=== PATIENT | female | born 1950 | race Caucasian/White ===

== ENCOUNTER 2019-12-28 06:53 | Emergency (ER) | payer MEDICARE ==
[~2019-12-28] VITALS: Ht 175.2 cm; Wt 79.0 kg
[2019-12-28] MEDS ORDERED: MECLIZINE 25 MG (ANTIVERT) TAB PO ONE (07:30)
[2019-12-28 07:38] LABS: HEMATOCRIT 38 % (35-52); MEAN CORPUSCULAR HEMOGLOBIN 28 PG (25-34); MEAN CORPUSCULAR HGB CONC 32 G/DL (32-36); MEAN CORPUSCULAR VOLUME 89 FL (80-99); RED CELL DISTRIBUTION WIDTH 13.8 % (10.0-14.5); WHITE BLOOD COUNT 9.9 10^3/uL (4.3-11.0)
[2019-12-28 07:39] LABS: BASOPHILS # (AUTO) 0.1 10^3/uL (0.0-0.1); BASOPHILS % (AUTO) 1 % (0-10); EOSINOPHILS # (AUTO) 0.3 10^3/uL (0.0-0.3); EOSINOPHILS % (AUTO) 3 % (0-10); LYMPHOCYTES # (AUTO) 2.5 X 10^3 (1.0-4.0); LYMPHOCYTES % (AUTO) 25 % (12-44); MEAN PLATELET VOLUME 9.8 FL (7.4-10.4); MONOCYTES # (AUTO) 0.6 X 10^3 (0.0-1.0); MONOCYTES % (AUTO) 6 % (0-12); NEUTROPHILS # (AUTO) 6.5 X 10^3 (1.8-7.8); NEUTROPHILS % (AUTO) 65 % (42-75); PLATELET COUNT 334 10^3/uL (130-400)
--- NOTE | 2019-12-28 07:39 | ED General ---
General Chief Complaint: Dizziness/Syncope Stated Complaint: DIZZY,VOMITING Nursing Triage Note: Patient presents to the ED with c/o of sudden onset dizziness with nausea and vomiting. States she woke up around 5am with dizziness. She reports that she is 4 weeks post-op from a right hip replacement. Nursing Sepsis Screen: No Definite Risk Source of Information: Patient Exam Limitations: No Limitations History of Present Illness Date Seen by Provider: Dec 28, 2019 Time Seen by Provider: 07:00 Initial Comments Awoke to use the restroom this morning w dizziness, worse w moving head. Had difficulty walking and became nauseated and vomited x 1. Hx of similar episode in the past. No other symptoms. Denies MILLER, numbness, tingling or weakness. Denies speech difficulty. Had Right hip replacement 4 weeks ago, denies pain or swelling or LE's. Taking an ASA daily. No Hx of DVT / PE. Timing/Duration: 1-3 Hours Severity: Moderate Modifying Factors: worse with Movement Associated Systoms: No Headaches; Nausea/Vomiting; No Shortness of Air, No Syncope, No Weakness Allergies and Home Medications Allergies Coded Allergies: Sulfa (Sulfonamide Antibiotics) (Verified Allergy, Unknown, 12/28/19) Patient Home Medication List Home Medication List Reviewed: Yes Review of Systems Review of Systems Constitutional: see HPI; No diaphoresis; dizziness; No fever, No malaise, No weakness EENTM: no symptoms reported; No ear pain, No blurred vision, No double vision, No eye pain, No nose congestion, No throat pain, No throat swelling Respiratory: no symptoms reported; No cough, No dyspnea on exertion, No short of breath Cardiovascular: No chest pain, No edema, No palpitations, No syncope, No vascular heart diseas Gastrointestinal: No abdominal pain; nausea, vomiting Musculoskeletal: no symptoms reported; No back pain, No joint pain, No joint swelling, No muscle pain, No muscle stiffness, No muscle cramps, No muscle twitching, No muscle weakness, No neck pain Skin: No change in color, No lesions, No lumps, No rash Psychiatric/Neurological: Denies Headache, Denies Numbness, Denies Paresthesia, Denies Pre-Existing Deficit, Denies Seizure, Denies Tingling, Denies Tremors, Denies Weakness Past [id number]-Eaijjs Hx Past Med/Social Hx: Reviewed Nursing Past Med/Soc Hx Patient Social History Alcohol Use: Denies Use Recreational Drug Use: No Smoking Status: Never a Smoker 2nd Hand Smoke Exposure: No Recent Foreign Travel: No Contact w/Someone Who Travel: No Recent Infectious Disease Expo: No Recent Hopitalizations: No Physical Abuse: No Sexual Abuse: No Mistreated: No Fear: No Seasonal Allergies Seasonal Allergies: No Past Medical History Surgeries: Yes (R hip replacement, cataract removal) Bowel Surgery, Eye Surgery, Gallbladder, Hysterectomy, Orthopedic Respiratory: No Cardiac: Yes Hypertension Neurological: Yes Vertigo GANG SAWYER History: Hysterectomy Genitourinary: No Gastrointestinal: Yes Gastroesophageal Reflux Endocrine: No HEENT: No Cancer: No Psychosocial: No Integumentary: No Blood Disorders: No Physical Exam Vital Signs Vital Signs - First Documented 12/28/19 06:53 Temp 36.1 Pulse 78 Resp 18 B/P (MAP) 191/80 (117) Pulse Ox 100 O2 Delivery Room Air Capillary Refill : Less Than 3 Seconds Height, Weight, BMI Height: '" Weight: lbs. oz. kg; 25.00 BMI Method: General Appearance: No Apparent Distress, WD/WN HEENT: PERRL/EOMI, TMs Normal, Normal ENT Inspection, Pharynx Normal; No Photophobia Neck: Normal Inspection, Non Tender, Supple Respiratory: Chest Non Tender, Lungs Clear Cardiovascular: Regular Rate, Rhythm, No Edema, No Gallop, Normal Peripheral Pulses Gastrointestinal: Normal Bowel Sounds, Non Tender, Soft Extremity: Normal Capillary Refill, Normal Inspection, Normal Range of Motion, Non Tender, No Calf Tenderness, No Pedal Edema; No Calf Tenderness Neurologic/Psychiatric: Alert, Oriented x3, No Motor/Sensory Deficits, Normal Mood/Affect, street 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 Norm as Tested; No Abnormal Cerebellar Tests, No Abnormal street 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; Abnormal Gait (unable to walk 2 to severe vertigo sx); No Aphasia, No Depressed Affect, No Disoriented, No EOM Palsy, No Facial Droop, No Motor Weakness, No Sensory Deficit Skin: Normal Color, Warm/Dry Progress/Results/Core Measures Suspected Sepsis Recent Fever Within 48 Hours: No Infection Criteria Present: None New/Unexplained Altered Menta: No Sepsis Screen: No Definite Risk SIRS Temperature: Pulse: 78 Respiratory Rate: 18 Laboratory Tests 12/28/19 07:10: White Blood Count 9.9 Blood Pressure 191 /80 Mean: 117 Laboratory Tests 12/28/19 07:10: Creatinine 0.78, INR Comment 1.0, Platelet Count 334, Total Bilirubin 0.3 Results/Orders Lab Results Laboratory Tests Test 12/28/19 07:10 Range/Units White Blood Count 9.9 4.3-11.0 10^3/uL Red Blood Count 4.28 L 4.35-5.85 10^6/uL Hemoglobin 12.0 11.5-16.0 G/DL Hematocrit 38 35-52 % Mean Corpuscular Volume 89 80-99 FL Mean Corpuscular Hemoglobin 28 25-34 PG Mean Corpuscular Hemoglobin Concent 32 32-36 G/DL Red Cell Distribution Width 13.8 10.0-14.5 % Platelet Count 334 130-400 10^3/uL Mean Platelet Volume 9.8 7.4-10.4 FL Neutrophils (%) (Auto) 65 42-75 % Lymphocytes (%) (Auto) 25 12-44 % Monocytes (%) (Auto) 6 0-12 % Eosinophils (%) (Auto) 3 0-10 % Basophils (%) (Auto) 1 0-10 % Neutrophils # (Auto) 6.5 1.8-7.8 X 10^3 Lymphocytes # (Auto) 2.5 1.0-4.0 X 10^3 Monocytes # (Auto) 0.6 0.0-1.0 X 10^3 Eosinophils # (Auto) 0.3 0.0-0.3 10^3/uL Basophils # (Auto) 0.1 0.0-0.1 10^3/uL Prothrombin Time 13.6 12.2-14.7 SEC INR Comment 1.0 0.8-1.4 Activated Partial Thromboplast Time 29 24-35 SEC D-Dimer 2.91 H 0.00-0.49 UG/ML Sodium Level 142 135-145 MMOL/L Potassium Level 3.7 3.6-5.0 MMOL/L Chloride Level 104 98-107 MMOL/L Carbon Dioxide Level 23 21-32 MMOL/L Anion Gap 15 H 5-14 MMOL/L Blood Urea Nitrogen 14 7-18 MG/DL Creatinine 0.78 0.60-1.30 MG/DL Estimat Glomerular Filtration Rate > 60 BUN/Creatinine Ratio 18 Glucose Level 127 H 70-105 MG/DL Calcium Level 9.4 8.5-10.1 MG/DL Corrected Calcium 9.2 8.5-10.1 MG/DL Total Bilirubin 0.3 0.1-1.0 MG/DL Aspartate Amino Transf (AST/SGOT) 19 5-34 U/L Alanine Aminotransferase (ALT/SGPT) 9 0-55 U/L Alkaline Phosphatase 109 40-136 U/L Troponin I < 0.30 <0.30 NG/ML Total Protein 7.3 6.4-8.2 GM/DL Albumin 4.3 3.2-4.5 GM/DL My Orders Orders - ROVENSTINEJAD DO Partial Thromboplastin Time (12/28/19 07:05) Ct Head Wo (12/28/19 07:05) Cbc With Automated Diff (12/28/19 07:05) Comprehensive Metabolic Panel (12/28/19 07:05) Fibrin Degradation Products (12/28/19 07:05) Protime With Inr (12/28/19 07:05) Troponin I Fs (12/28/19 07:05) Ekg Tracing (12/28/19 07:05) Meclizine Tablet (Antivert Tablet) (12/28/19 07:30) Medications Given in ED Current Medications Medications Dose Ordered Sig/Soo Route Start Time Stop Time Status Last Admin Dose Admin Meclizine HCl 25 mg ONCE ONCE PO 12/28/19 07:30 12/28/19 07:31 DC 12/28/19 07:33 25 MG Vital Signs/I&O 12/28/19 12/28/19 06:53 09:35 Temp 36.1 36.1 Pulse 78 71 Resp 18 16 B/P (MAP) 191/80 (117) 177/78 (117) Pulse Ox 100 100 O2 Delivery Room Air Capillary Refill : Less Than 3 Seconds Blood Pressure Mean: 117 Progress Note : Time: 09:00 Progress Note Patient presents w severe vertigo, nausea and vomiting first noted upon awakening this morning to use the restroom. Last known well @ midnight. Symptoms worse w changing positions or moving head. Hx of 1 other episode of vertigo in the past, but not this bad. Normal CT, w chronic ischemic changes, normal labs w elevated d-dimer. Hx of recent hip surgery 4 wks ago. No significant improvement after meclizine. Called [facility] (pt's request) @ 0817, spoke to Neuro (Dr Arnold) and transfer physician, Dr Ryan, who accepts for transfer @ 0830 for ER to ER to [facility] w plans for MRI on arrival. Most likely peripheral vertigo, but several risk factors for possible posterior circulation CVA can not be ruled out at this facility and necessitate transfer to higher level of care at this time. Departure Communication (Admissions) Family Conversation multiple conversations w patient and family regarding need for further evaluation at a facility more capable. Will need an MRI to rule out a posterior circulation stroke. Explained risk factors and risk benefit of evaluation. Impression Primary Impression: Vertigo Disposition: 02 XFER SHT-TRM HOSP Condition: Stable Transfer Transfer Reason: Exceeds level of care Time Spoke to Accepting Phy: 08:[address] Ryan, [facility] transfer physician accepts @ 0830 for ER to ER [facility]. Method of Transfer: EMS Departure-Patient Inst. Referrals: HAILEY FLANNERY MD (PCP/Family) Primary Care Physician JAD DARBY DO Dec 28, 2019 07:39
[2019-12-28 07:40] LABS: SODIUM 142 MMOL/L (135-145)
[2019-12-28 07:41] LABS: ALANINE AMINOTRANSFERASE 9 U/L (0-55); ALBUMIN 4.3 GM/DL (3.2-4.5); ALKALINE PHOSPHATASE 109 U/L (40-136); BILIRUBIN,TOTAL 0.3 MG/DL (0.1-1.0); BUN/CREATININE RATIO 18; CALCIUM 9.4 MG/DL (8.5-10.1); CARBON DIOXIDE 23 MMOL/L (21-32); CHLORIDE 104 MMOL/L (98-107); CREATININE SERUM 0.78 MG/DL (0.60-1.30); GFR ESTIMATED > 60; GLUCOSE 127 MG/DL (70-105); POTASSIUM 3.7 MMOL/L (3.6-5.0); TOTAL PROTEIN 7.3 GM/DL (6.4-8.2)
--- NOTE | 2019-12-28 07:47 | Diagnostic Imaging Report ---
PROCEDURE: CT head without contrast. TECHNIQUE: Multiple contiguous axial images were obtained through the brain without the use of intravenous contrast. Auto Exposure Controls were utilized during the CT exam to meet ALARA standards for radiation dose reduction. INDICATION: Dizziness/vomiting The ventricles are normal in size, shape and position. There are no masses or hemorrhages. There are no extra-axial fluid collections. Paranasal sinuses are clear. There are some small areas of decreased density in the periventricular white matter likely due to chronic small vessel ischemic change. IMPRESSION: Mild chronic ischemic leukoencephalopathy. No acute abnormality seen. Dictated by: Dictated on workstation # [id number]
[2019-12-28 07:58] LABS: FIBRIN DEGRADATION PRODUCTS 2.91 UG/ML (0.00-0.49); PROTHROMBIN TIME PATIENT 13.6 SEC (12.2-14.7)
[2019-12-28 09:35] VITALS: BP 177/78
== END 2019-12-28 09:44 | disposition short-term general hospital (02) ==
LOC: ER FS 06:56
DX: R42 Dizziness and giddiness (principal); Z88.2 Allergy status to sulfonamides; Z90.710 Acquired absence of both cervix and uterus; Z96.641 Presence of right artificial hip joint
CPT/HCPCS: 36415; 70450; 80053; 84484; 85025; 85379; 85610; 85730; 93005

== ENCOUNTER 2021-02-22 13:29 | Outpatient (CLI) | payer MEDICARE ==
[~2021-02-22] VITALS: Ht 175.3 cm; Wt 81.8 kg
[2021-02-22 13:26] VITALS: BP 152/91
[2021-02-22] MEDS ORDERED: diphenhydrAMINE 50 MG/ML INJ (BENADRYL) IV PRN (13:45)
[2021-02-22] MEDS ORDERED: EPINEPHrine INJECTION 1 MG/ML AMP IM PRN (13:45)
[2021-02-22] MEDS ORDERED: CASIRIVIMAB/IMDEVIMAB 2,400 MG/NS 250 ML IV ONE ×3 (13:45)
[2021-02-22 16:02] VITALS: BP 152/91
== END 2021-02-22 16:05 | disposition home or self-care (01) ==
LOC: INFUSION 13:29
PROVIDERS: ATTEND Family Medicine
DX: Z23 Encounter for immunization (principal); U07.1 COVID-19

== ENCOUNTER → 2021-05-16 | Outpatient (CLI) | payer MEDICARE ==
[~2021-05-16] MED LIST: CATHETER FLUSH 10 ML SYR IV PRN; HOLD METFORMIN - RECEIVED CONTRAST 20 ML VIAL IV SCH; IOHEXOL 350 MG/ML 100 ML (OMNIPAQUE 350) VIAL IV ONE; NS 100 ML (IVPB) BAG IV ONE
[2021-05-16 07:54] LABS: CALCIUM 9.4 MG/DL (8.5-10.1); CREATININE SERUM 0.93 MG/DL (0.60-1.30); POTASSIUM 4.3 MMOL/L (3.6-5.0)
[2021-05-16 07:55] LABS: ALBUMIN 4.2 GM/DL (3.2-4.5); BILIRUBIN,TOTAL 0.4 MG/DL (0.1-1.0); TOTAL PROTEIN 7.3 GM/DL (6.4-8.2)
--- NOTE | 2021-05-16 09:02 | Diagnostic Imaging Report ---
PROCEDURE: CT angiography of the chest with contrast. TECHNIQUE: Multiple contiguous axial images were obtained through the chest after uneventful bolus administration of intravenous contrast. 3D reconstructed CTA MIP acquisitions were also performed. Auto Exposure Controls were utilized during the CT exam to meet ALARA standards for radiation dose reduction. INDICATION: Cough, elevated D-dimer. No relevant comparison. FINDINGS: Pulmonary arterial branches are widely patent and well opacified. No filling defect. No PE. The thoracic aorta is patent and nonaneurysmal. There are coronary arterial atherosclerotic vascular calcifications. There is a small hiatal hernia. The lungs are clear. No infiltrate or groundglass opacity. No mass or lymphadenopathy. No acute or suspect soft tissue or osseous chest wall pathology. There is no effusion or pneumothorax. The visualized upper abdomen showed no acute appearing abnormality. IMPRESSION: Negative for PE or acute aortic disease. Clear lungs. Chronic coronary artery atherosclerotic vascular calcifications noted. Small hiatal hernia. Dictated by: Dictated on workstation # [id number]
== END ==
LOC: RAD FS 07:15
PROVIDERS: ATTEND Family Medicine
DX: R79.89 Other specified abnormal findings of blood chemistry (principal); I25.10 Atherosclerotic heart disease of native coronary artery without angina pectoris; K44.9 Diaphragmatic hernia without obstruction or gangrene
CPT/HCPCS: 36415; 71275; 80053

== ENCOUNTER → 2021-08-13 | Outpatient (CLI) | payer SELFPAY ==
--- NOTE | 2021-08-13 17:01 | Diagnostic Imaging Report ---
EXAMINATION: CT calcium scoring without contrast. TECHNIQUE: Multiple contiguous axial images were obtained through the chest without the use of intravenous contrast for purposes of calcium scoring. All CT scans use one or more of the following dose optimizing techniques: automated exposure control, MA and/or KvP adjustment based on patient size and exam type or iterative reconstruction. HISTORY: Coronary artery disease. COMPARISON: None available. FINDINGS: The calculated coronary artery calcium score is 1049. There is no edema or pneumonia. No pleural effusion. No pneumothorax. No suspicious nodules. Heart size is normal. No pericardial effusion. Aorta is normal in caliber. There is no axillary or supraclavicular lymphadenopathy. There is no mediastinal lymphadenopathy. Limited views of the upper abdomen are unremarkable. There are no suspicious osseus lesions. IMPRESSION: Calculated coronary artery calcium score of 1049, placing the patient above the 90th percentile for age. Dictated by: Dictated on workstation # [id number]
== END ==
LOC: RAD FS 10:26
PROVIDERS: ATTEND Family Medicine
DX: Z82.49 Family history of ischemic heart disease and other diseases of the circulatory system (principal)
CPT/HCPCS: 75571

== ENCOUNTER 2022-03-14 08:46 | Emergency (ER) | payer MEDICARE ==
[~2022-03-14] VITALS: Ht 175 cm; Wt 81.0 kg
[2022-03-14] MEDS ORDERED: fentaNYL INJ 100 MCG/2 ML AMP IVP STA ×2 (09:06→10:59)
[2022-03-14] MEDS ORDERED: ORPHENADRINE 60 MG/2 ML (NORFLEX) AMP (ED ONLY) IVP STA (09:06)
--- NOTE | 2022-03-14 09:13 | ED Back Pain ---
General Chief Complaint: Lower Extremity Stated Complaint: RT LEG PAIN Nursing Triage Note: Patient reports she has chronic lower back pain, states she received an injection at on March 06. She reports her right leg began hurting yesterday with constant aching and occasional sharp, shooting pains down her leg. Source of Information: Patient, Spouse History of Present Illness Date Seen by Provider: March 14, 2022 Time Seen by Provider: 08:49 Initial Comments 71-year-old female presenting with complaints of pain in the right leg. She states that this started hurting yesterday. She does have a history of chronic low back pain and had spinal injections with pain management on March 06 at [facility]. She reports that the left leg that has been hurting was doing better but now her right leg is bothering her. She has pain with constant aching and feeling like the muscles are tight or spasming. Then she has occasional sharp electric shocks sensations going down her leg. She denies any new fall or trauma however 2 days ago she had been doing a lot of gardening outside. She had taken some hydrocodone last night to help with her pain. This allowed her to rest some overnight but she was never able to sleep. Since the pain persisted and was feeling worse this morning she came to the emergency department. She denies any loss of bowel or bladder control. She does have chronic stress incontinence since she had gynecologic surgery previously, and this has not changed. Location: Other (low back and right hip radiating down right leg) Timing/Duration: 1-2 Days Severity: Severe Pain/Injury Location: Lower Extremity (low back and right hip radiating down right leg) Radiation: Feet, Lower Legs, Upper Legs Method of Injury: Unknown Modifying Factors: Worse With Movement; Improves With Pain Medication (hydrocodone helped some) Associated Symptoms: muscle spasms; No fever, No weakness, No numbness in legs/feet, No tingling in legs/feet, No sensory/motor loss; lower back pain; No loss of bladder control, No loss of bowel control Allergies and Home Medications Allergies Coded Allergies: Sulfa (Sulfonamide Antibiotics) (Verified Allergy, Unknown, 12/28/19) lisinopril (Verified Allergy, Unknown, 03/14/22) Patient Home Medication List Home Medication List Reviewed: Yes Hydrocodone/Acetaminophen (Hydrocodone-Acetamin 5-325 mg) 5 Mg-325 Mg Tablet, 1 TAB PO Q4H PRN for PAIN-SEVERE (8-10) Prescribed by: KRISTEN MAZARIEGOS on 03/14/22 1031 Prednisone (Prednisone) 20 Mg Tab, 40 MG PO DAILY Prescribed by: KRISTEN MAZARIEGOS on 03/14/22 1030 Tizanidine HCl (Tizanidine HCl) 4 Mg Capsule, 4 MG PO TID PRN for MUSCLE SPASMS Prescribed by: KRISTEN MAZARIEGOS on 03/14/22 1030 Review of Systems Constitutional: No chills, No fever EENTM: no symptoms reported Respiratory: no symptoms reported Cardiovascular: no symptoms reported Gastrointestinal: no symptoms reported Genitourinary: no symptoms reported Musculoskeletal: see HPI Skin: no symptoms reported Psychiatric/Neurological: Anxiety (anxious and stressed with pain from her right leg) Past Oczzlxm-Nkpyqt-Worjur Hx Patient Social History Tobacco Use?: No Substance use?: No Alcohol Use?: No Pt feels they are or have been: No Seasonal Allergies Seasonal Allergies: No Past Medical History Surgery/Hospitalization HX: HTN, Hypercholesterolemia, Chronic Low Back Pain, Sciatica Surgeries: Yes (R hip replacement, cataract removal) Bowel Surgery, Eye Surgery, Gallbladder, Hysterectomy, Orthopedic Respiratory: No Cardiac: Yes Hypertension Neurological: Yes Vertigo 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 oz. 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 Norm as Tested Skin: Normal Color, Warm/Dry Progress/Results/Core Measures Results/Orders My Orders Orders - ENYART,KRISTEN E MD Ed Iv/Invasive Line Start (03/14/22 09:06) Orphenadrine Inj (Ed Only) (Norflex Inje (03/14/22 09:06) Fentanyl Inj (Sublimaze Injection) (03/14/22 09:06) Dexamethasone Injection (Decadron Inje (03/14/22 09:06) Ct Lumbar Spine Wo (03/14/22 09:07) Ct Pelvis Wo (03/14/22 09:07) Ondansetron Injection (Zofran Injectio (03/14/22 09:31) Ondansetron Injection (Zofran Injectio (03/14/22 09:33) Ketorolac Injection (Toradol Injection) (03/14/22 10:33) Ondansetron Injection (Zofran Injectio (03/14/22 10:59) Fentanyl Inj (Sublimaze Injection) (03/14/22 10:59) Vital Signs/I&O 03/14/22 03/14/22 08:55 11:15 Temp 36.3 Pulse 82 60 Resp 18 18 B/P (MAP) 198/104 (135) 133/82 Pulse Ox 99 99 O2 Delivery Room Air Room Air Blood Pressure Mean: 135 Progress Progress Note #1: Progress Note Check CT scan of Lumbar spine and pelvis to evaluate for any acute bony abnormality to be causing her increased low back pain, right hip pain and pain s hooting down right leg. For pain and muscle spasm complaints will give Norflex 60 mg IV, Fentanyl 50 mcg IV, Dexamethasone 10 mg IV. Differential diagnosis includes sciatica, flare of chronic back pain, muscle spasm, pinched nerve, lumbar radiculopathy,spinal stenosis Progress Note #2: Progress Note Patient had n/v after medications given in ED and transport to and from CT. Given Zofran 4 mg IV which helped these symptoms. She reports some improvement in her pain but that she still has constant aching pain present. Awaiting CT reports. Progress Note #3: Progress Note 1014 CT scan show no acute inflammatory process in the pelvis. She has advanced degenerative changes in the lumbar spine with L2-3 and L4-5 being more severe degeneration with neuroforaminal stenosis and trefoil spinal stenosis more severe at those levels. Will refill Hydrocodone so she has that available prn severe pain. Continue with Aleve she is already taking. Do a short steroid burst for additional anti-inflammatory effect. Prescribe muscle relaxer for home as well. Counseled pt on additive sedative effect of muscle relaxer and narcotics. Try alternating ice and heat. Rest and check with clinic for continued concerns/issues with back and leg. Prior to discharge home she was given an additional dose of Fentanyl 50 mcg, Zofran 4 mg, and added Toradol 30 mg IV to try and help with her pain and help her rest at home. Diagnostic Imaging Diagonstic Imaging: CT Plain Films/CT/US/NM/MRI: pelvis (and Lumbar spine) Comments [facility] [place], [place] NAME: MISHEL PHIPPS [facility] REC#: [id number] PT STATUS: REG ER : 1950 PHYSICIAN: KRISTEN MAZARIEGOS MD ADMIT DATE: 03/14/22/ER FS Draft Date of Exam:03/14/22 CT PELVIS WO PROCEDURE: CT pelvis without contrast. TECHNIQUE: Multiple contiguous axial images were obtained through the pelvis without the use of intravenous contrast. Sagittal and coronal reformations were performed. Auto Exposure Controls were utilized during the CT exam to meet ALARA standards for radiation dose reduction. INDICATION: Back and right hip pain. No relevant comparison. FINDINGS: Sacrococcygeal segments and SI joints nonacute and unremarkable. No symphyseal or SI joint diastases. No sacral fracture. No intra or extraperitoneal hemorrhage or inflammatory changes. There is a right hip replacement without apparent complication. The left hip arthritic but nonacute. No osseous or hardware fracture. No mass or fluid collection. The uterus absent or atrophic. There is no adnexal lesion. Pelvic bowel loops unobstructed, nonfocal and nonacute. IMPRESSION: Unremarkable CT pelvis right hip replacement without complication. No pelvic fracture, hemorrhage or inflammatory process identified. Dictated on workstation # [id number] Dict: 03/14/22 0948 Trans: 03/14/22 1001 [id number] Interpreted by: CLARI GALLARDO Electronically signed by: [facility] [place] [place] NAME: MISHEL PHIPPS [facility] REC#: [id number] PT STATUS: REG ER : 1950 PHYSICIAN: KRISTEN MAZARIEGOS MD ADMIT DATE: 03/14/22/ER FS Draft Date of Exam:03/14/22 CT LUMBAR SPINE WO PROCEDURE: CT lumbar spine without contrast. TECHNIQUE: Multiple contiguous axial images were obtained through the lumbar spine without the use of intravenous contrast. Sagittal and coronal reformations were then performed. Auto Exposure Controls were utilized during the CT exam to meet ALARA standards for radiation dose reduction. INDICATION: Severe back pain There is mild left convexity curvature of the lumbar spine. This results in advanced disc space narrowing to the right of midline at L2-L3 with subchondral sclerosis and associated marginal spurring. There is associated disc bulging and ligamentum flavum hypertrophy at this level resulting in moderate trefoil type spinal stenosis with mild to moderate left and moderately severe right neuroforaminal stenosis. There is also diffuse annular bulging of the L3-L4 disc which is somewhat eccentric toward the right. This results in mild left and moderate right neuroforaminal stenosis with mild central spinal stenosis. At L4-L5, there is grade 1 anterolisthesis of L4 on L5 with extensive ligamentum flavum hypertrophy and degenerative facet arthropathy resulting in height grade trefoil type spinal stenosis and bilateral neuroforaminal stenosis, greater on the left. At the L5-S1 level, there is diffuse disc bulging with associated degenerative facet arthropathy resulting in no significant spinal stenosis however there is moderate bilateral neuroforaminal stenosis which is greater on the right. In addition, note is made of moderate narrowing of the T11-T12 disc space with associated endplate spurring and disc bulging. There is no evidence of an acute fracture. No definite paraspinous abnormality is identified. IMPRESSION: Advanced degenerative findings throughout the lumbar spine which are most pronounced at the L2-L3 and L4-L5 levels. At L2-L3, there is resultant moderate trefoil type spinal stenosis with mild to moderate left and moderately severe right neuroforaminal stenosis, while at L4-L5, there is high-grade trefoil type spinal stenosis and bilateral neuroforaminal stenosis, greater on the left. Dictated on workstation # [id number] Dict: 03/14/22 0947 Trans: 03/14/22 0957 [facility] [id number] Interpreted by: CLARI WU MD Electronically signed by: Reviewed: Reviewed by Me Departure Impression Primary Impression: Chronic low back pain with right-sided sciatica Qualified Codes: M54.41 - Lumbago with sciatica, right side; G89.29 - Other chronic pain Additional Impressions: Lumbar back pain with radiculopathy affecting right lower extremity Spinal stenosis of lumbar region at multiple levels Spinal stenosis of lumbar region with radiculopathy Disposition: 01 HOME, SELF-CARE Condition: Stable Departure-Patient Inst. Decision time for Depature: 10:32 Referrals: HAILEY FLANNERY MD (PCP) Primary Care Physician Patient Instructions: Sciatica ED, Low Back Pain ED, Radiculopathy, Spinal St enosis (DC) Add. Discharge Instructions: Continue with your current medications. Add on the muscle relaxer to help with spasms and aching in the leg, Steroids for next few days to try and help more with inflammation. Check back with pain management doctor at as well as your primary care provider about increased pain symptoms. Try alternating ice and heat to your low back and right hip to help with pain and inflammation. Stay well hydrated and try to get plenty of rest All discharge instructions reviewed with patient and/or family. Voiced understanding. Scripts Prednisone (Prednisone) 20 Mg Tab 40 MG PO DAILY for sciatica for 5 Days, #10 TAB 0 Refills Prov: KRISTEN MAZARIEGOS MD 03/14/22 Tizanidine HCl (Tizanidine HCl) 4 Mg Capsule 4 MG PO TID PRN for MUSCLE SPASMS for 10 Days, #30 CAP 0 Refills Prov: KRISTEN MAZARIEGOS MD 03/14/22 Hydrocodone/Acetaminophen (Hydrocodone-Acetamin 5-325 mg) 5 Mg-325 Mg Tablet 1 TAB PO Q4H PRN for PAIN-SEVERE (8-10) for 5 Days, #30 TAB 0 Refills Prov: KRISTEN MAZARIEGOS MD 03/14/22 Work/School Note: Work Release Form Date Seen in the Emergency Department: March 14, 2022 Return to Work: March 17, 2022 Other Restrictions Listed Below: Limit activity based on back and leg pain KRISTEN MAZARIEGOS MD March 14, 2022 09:13
[2022-03-14] MEDS ORDERED: ONDANSETRON 4 MG/2 ML (SDV) Z0FRAN IVP STA ×2 (09:31→10:59)
[2022-03-14] MEDS ORDERED: ONDANSETRON 4 MG/2 ML (SDV) Z0FRAN ONE (09:33)
--- NOTE | 2022-03-14 09:58 | Diagnostic Imaging Report ---
PROCEDURE: CT lumbar spine without contrast. TECHNIQUE: Multiple contiguous axial images were obtained through the lumbar spine without the use of intravenous contrast. Sagittal and coronal reformations were then performed. Auto Exposure Controls were utilized during the CT exam to meet ALARA standards for radiation dose reduction. INDICATION: Severe back pain There is mild left convexity curvature of the lumbar spine. This results in advanced disc space narrowing to the right of midline at L2-L3 with subchondral sclerosis and associated marginal spurring. There is associated disc bulging and ligamentum flavum hypertrophy at this level resulting in moderate trefoil type spinal stenosis with mild to moderate left and moderately severe right neuroforaminal stenosis. There is also diffuse annular bulging of the L3-L4 disc which is somewhat eccentric toward the right. This results in mild left and moderate right neuroforaminal stenosis with mild central spinal stenosis. At L4-L5, there is grade 1 anterolisthesis of L4 on L5 with extensive ligamentum flavum hypertrophy and degenerative facet arthropathy resulting in height grade trefoil type spinal stenosis and bilateral neuroforaminal stenosis, greater on the left. At the L5-S1 level, there is diffuse disc bulging with associated degenerative facet arthropathy resulting in no significant spinal stenosis however there is moderate bilateral neuroforaminal stenosis which is greater on the right. In addition, note is made of moderate narrowing of the T11-T12 disc space with associated endplate spurring and disc bulging. There is no evidence of an acute fracture. No definite paraspinous abnormality is identified. IMPRESSION: Advanced degenerative findings throughout the lumbar spine which are most pronounced at the L2-L3 and L4-L5 levels. At L2-L3, there is resultant moderate trefoil type spinal stenosis with mild to moderate left and moderately severe right neuroforaminal stenosis, while at L4-L5, there is high-grade trefoil type spinal stenosis and bilateral neuroforaminal stenosis, greater on the left. Dictated by: Dictated on workstation # [id number]
--- NOTE | 2022-03-14 10:02 | Diagnostic Imaging Report ---
PROCEDURE: CT pelvis without contrast. TECHNIQUE: Multiple contiguous axial images were obtained through the pelvis without the use of intravenous contrast. Sagittal and coronal reformations were performed. Auto Exposure Controls were utilized during the CT exam to meet ALARA standards for radiation dose reduction. INDICATION: Back and right hip pain. No relevant comparison. FINDINGS: Sacrococcygeal segments and SI joints nonacute and unremarkable. No symphyseal or SI joint diastases. No sacral fracture. No intra or extraperitoneal hemorrhage or inflammatory changes. There is a right hip replacement without apparent complication. The left hip arthritic but nonacute. No osseous or hardware fracture. No mass or fluid collection. The uterus absent or atrophic. There is no adnexal lesion. Pelvic bowel loops unobstructed, nonfocal and nonacute. IMPRESSION: Unremarkable CT pelvis right hip replacement without complication. No pelvic fracture, hemorrhage or inflammatory process identified. Dictated by: Dictated on workstation # [id number]
[2022-03-14] MEDS ORDERED: PRD20T PO (10:30)
[2022-03-14] MEDS ORDERED: ACHD5005 PO (10:30)
[2022-03-14] MEDS ORDERED: TIZA4CAP8 PO (10:30)
[2022-03-14] MEDS ORDERED: KETOROLAC 30 MG/ML VIAL IVP STA (10:33)
[2022-03-14 11:15] VITALS: BP 133/82
== END 2022-03-14 11:15 | disposition home or self-care (01) ==
LOC: EDUNIT# 08:46 → ER FS 08:47
DX: M54.41 Lumbago with sciatica, right side (principal); M48.061 Spinal stenosis, lumbar region without neurogenic claudication; M54.16 Radiculopathy, lumbar region; G89.29 Other chronic pain; Z96.641 Presence of right artificial hip joint; X58.XXXA Exposure to other specified factors, initial encounter
CPT/HCPCS: 72131; 72192

== ENCOUNTER 2022-03-21 17:30 | Emergency (ER) | payer MEDICARE ==
[~2022-03-21] VITALS: Ht 172.7 cm; Wt 80.7 kg
[~2022-03-21 17:30] MED LIST changes: +ACHD5005 PO; -CATHETER FLUSH 10 ML SYR IV PRN; -HOLD METFORMIN - RECEIVED CONTRAST 20 ML VIAL IV SCH; -IOHEXOL 350 MG/ML 100 ML (OMNIPAQUE 350) VIAL IV ONE; -NS 100 ML (IVPB) BAG IV ONE; +PRD20T PO; +TIZA4CAP8 PO
[2022-03-21] MEDS ORDERED: fentaNYL INJ 100 MCG/2 ML AMP IVP STA (17:38)
[2022-03-21] MEDS ORDERED: ONDANSETRON 4 MG/2 ML (SDV) Z0FRAN IVP STA (17:38)
[2022-03-21 17:45] LABS: BASOPHILS # (AUTO) 0.1 10^3/uL (0.0-0.1); BASOPHILS % (AUTO) 0 % (0-10); EOSINOPHILS # (AUTO) 0.4 10^3/uL (0.0-0.3); EOSINOPHILS % (AUTO) 2 % (0-10); HEMATOCRIT 40 % (35-52); HEMOGLOBIN 13.2 g/dL (11.5-16.0); LYMPHOCYTES # (AUTO) 6.1 10^3/uL (1.0-4.0); LYMPHOCYTES % (AUTO) 33 % (12-44); MEAN CORPUSCULAR HEMOGLOBIN 29 pg (25-34); MEAN CORPUSCULAR HGB CONC 33 g/dL (32-36); MEAN CORPUSCULAR VOLUME 87 fL (80-99); MEAN PLATELET VOLUME 9.5 fL (9.0-12.2); MONOCYTES # (AUTO) 1.8 10^3/uL (0.0-1.0); MONOCYTES % (AUTO) 9 % (0-12); NEUTROPHILS # (AUTO) 10.2 10^3/uL (1.8-7.8); NEUTROPHILS % (AUTO) 54 % (42-75); PLATELET COUNT 279 10^3/uL (130-400); WHITE BLOOD COUNT 18.9 10^3/uL (4.3-11.0)
[2022-03-21] MEDS ORDERED: TETANUS,DIPTH,PERTUSS P/F (BOOSTRIX) 0.5 ML VIAL IM ONE (17:45)
--- NOTE | 2022-03-21 17:45 | ED Fall/Injury ---
General Chief Complaint: Trauma-Non Activation Stated Complaint: FALL/HEAD INJURY Source: patient History of Present Illness Date Seen by Provider: March 21, 2022 Time Seen by Provider: 17:30 Initial Comments 71-year-old female presenting with complaints of fall after tripping at home just prior to arrival. She did hit the left side of her face and nose. She has a lot of swelling and pain especially around her eye. She denies losing consciousness. She denies having any neck pain. She has not had nausea or vomiting. She denies any other injuries or pain. She is not able to open her left eye due to swelling and pain. She has an abrasion to the left side of her nose as well. she is unsure of her last tetanus booster. Location Injury Occurred: Home Occurred: just prior to arrival Severity: severe Injuries/Pain Location: face Context: tripped Loss of Consciousness: no loss of consciousness Modifying Factors: Worse With Movement Associated Symptoms (Fall): No Abdominal Pain, No Chest Pain, No Confusion, No Dizziness; Headache (left sided); No Lightheadedness, No Muscle Spasms, No Nausea/Vomiting, No Neck Pain, No Ringing in Ears, No Seizures, No Shortness of Air, No Slurred Speech, No Trouble Walking; Vision Changes (When the eyelids are pulled open on the left eye she states she can not see. She can barely make out light from dark when I shine bright light in her eye) Allergies and Home Medications Allergies Coded Allergies: Sulfa (Sulfonamide Antibiotics) (Verified Allergy, Unknown, 12/28/19) lisinopril (Verified Allergy, Unknown, 03/14/22) Patient Home Medication List Home Medication List Reviewed: Yes Hydrocodone/Acetaminophen (Hydrocodone-Acetamin 5-325 mg) 5 Mg-325 Mg Tablet, 1 TAB PO Q4H PRN for PAIN-SEVERE (8-10) Prescribed by: KRISTEN MAZARIEGOS on 03/14/22 1031 Prednisone (Prednisone) 20 Mg Tab, 40 MG PO DAILY Prescribed by: KRISTEN MAZARIEGOS on 03/14/22 1030 Tizanidine HCl (Tizanidine HCl) 4 Mg Capsule, 4 MG PO TID PRN for MUSCLE SPASMS Prescribed by: KRISTEN MAZARIEGOS on 03/14/22 1030 Review of Systems Review of Systems Constitutional: No chills, No fever Eyes: See HPI Ears, Nose, Mouth, Throat: denies ear pain, denies ear discharge; nose pain; denies nose discharge, denies epistaxis, denies mouth pain, denies mouth swelling Respiratory: No cough, No short of breath Cardiovascular: No chest pain Gastrointestinal: No abdominal pain, No nausea, No vomiting Genitourinary: no symptoms reported Musculoskeletal: back pain (chronic back pain with sciatica) Skin: see HPI Psychiatric/Neurological: Headache (left sided from facial injury) Past Uljpgpa-Mrfmwp-Pubpwe Hx Patient Social History Tobacco Use?: No Smoking Status: Never a Smoker Substance use?: No Alcohol Use?: No Pt feels they are or have been: No Seasonal Allergies Seasonal Allergies: No Past Medical History Surgery/Hospitalization HX: HTN, Hypercholesterolemia, Chronic Low Back Pain, Sciatica Surgeries: Yes (R hip replacement, cataract removal) Bowel Surgery, Eye Surgery, Gallbladder, Hysterectomy, Orthopedic Respiratory: No Cardiac: Yes Hypertension Neurological: Yes Vertigo 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 oz. kg; 26.00 BMI Method: General Appearance: moderate distress HEENT: TMs normal, pharynx normal, other (no raccoon sign or jackson sign. Swelling and bruising to left eye with abrasion to left side of nose. 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 as tested, alert, oriented x 3 Skin: warm/dry, ecchymosis (left periorbital and facial) [place] Coma Score Best Eye Response: (4) Open Spontaneously Best Verbal Response: (5) Oriented Best Motor Response: (6) Obeys Commands Jennifer Total: 15 Progress/Results/Core Measures Results/Orders Lab Results Laboratory Tests Test 03/21/22 17:40 Range/Units White Blood Count 18.9 H 4.3-11.0 10^3/uL Red Blood Count 4.58 3.80-5.11 10^6/uL Hemoglobin 13.2 11.5-16.0 g/dL Hematocrit 40 35-52 % Mean Corpuscular Volume 87 80-99 fL Mean Corpuscular Hemoglobin 29 25-34 pg Mean Corpuscular Hemoglobin Concent 33 32-36 g/dL Red Cell Distribution Width 14.8 H 10.0-14.5 % Platelet Count 279 130-400 10^3/uL Mean Platelet Volume 9.5 9.0-12.2 fL Immature Granulocyte % (Auto) 1 % Neutrophils (%) (Auto) 54 42-75 % Lymphocytes (%) (Auto) 33 12-44 % Monocytes (%) (Auto) 9 0-12 % Eosinophils (%) (Auto) 2 0-10 % Basophils (%) (Auto) 0 0-10 % Neutrophils # (Auto) 10.2 H 1.8-7.8 10^3/uL Lymphocytes # (Auto) 6.1 H 1.0-4.0 10^3/uL Monocytes # (Auto) 1.8 H 0.0-1.0 10^3/uL Eosinophils # (Auto) 0.4 H 0.0-0.3 10^3/uL Basophils # (Auto) 0.1 0.0-0.1 10^3/uL Immature Granulocyte # (Auto) 0.2 H 0.0-0.1 10^3/uL Neutrophils % (Manual) 60 % Lymphocytes % (Manual) 33 % Monocytes % (Manual) 6 % Eosinophils % (Manual) 1 % Prothrombin Time 13.1 12.2-14.7 SEC INR Comment 1.0 0.8-1.4 Activated Partial Thromboplast Time 26 24-35 SEC Sodium Level 134 L 135-145 MMOL/L Potassium Level 3.7 3.6-5.0 MMOL/L Chloride Level 98 98-107 MMOL/L Carbon Dioxide Level 23 21-32 MMOL/L Anion Gap 13 5-14 MMOL/L Blood Urea Nitrogen 21 H 7-18 MG/DL Creatinine 0.96 0.60-1.30 MG/DL Estimat Glomerular Filtration Rate 63 BUN/Creatinine Ratio 22 Glucose Level 122 H 70-105 MG/DL Calcium Level 9.2 8.5-10.1 MG/DL Corrected Calcium 9.3 8.5-10.1 MG/DL Magnesium Level 2.0 1.6-2.4 MG/DL Total Bilirubin 0.3 0.1-1.0 MG/DL Aspartate Amino Transf (AST/SGOT) 18 5-34 U/L Alanine Aminotransferase (ALT/SGPT) 31 0-55 U/L Alkaline Phosphatase 60 40-136 U/L Total Protein 6.6 6.4-8.2 GM/DL Albumin 3.9 3.2-4.5 GM/DL My Orders Orders - KRISTEN MAZARIEGOS MD Cbc With Automated Diff (03/21/22 17:36) Magnesium (03/21/22 17:36) Comprehensive Metabolic Panel (03/21/22 17:36) Protime With Inr (03/21/22 17:36) Partial Thromboplastin Time (03/21/22 17:36) O2 (03/21/22 17:36) Monitor-Rhythm Ecg Trace Only (03/21/22 17:36) Ed Iv/Invasive Line Start (03/21/22 17:36) Ct Head/Face/Cervical Wo (03/21/22 17:37) Ondansetron Injection (Zofran Injectio (03/21/22 17:38) Fentanyl Inj (Sublimaze Injection) (03/21/22 17:38) Dipht,Pertuss(Acell),Tet Adult (Boostrix (03/21/22 17:45) Manual Differential (03/21/22 17:40) Medications Given in ED Current Medications Medications Dose Ordered Sig/Soo Route Start Time Stop Time Status Last Admin Dose Admin Diphtheria/ Tetanus/Acell Pertussis 0.5 ml ONCE ONCE IM 03/21/22 17:45 03/21/22 17:46 DC 03/21/22 17:56 0.5 ML Vital Signs/I&O 03/21/22 03/21/22 17:37 18:43 Temp 35.8 Pulse 71 63 Resp 24 18 B/P (MAP) 189/86 (120) 187/88 Pulse Ox 99 100 O2 Delivery Room Air Room Air Progress Progress Note #1: Progress Note Update tetanus booster since she is unsure when she last had a shot. CT scan of head, face, cervical spine. With her having loss of vision from left eye will call Trauma center to see about emergent transfer so she can get somewhere that has trauma services in addition to facial trauma and ophthalmology. Ordered basic labs and coags. Give Fentanyl 25 mcg IV with Zofran 4 mg IV. Progress Note #2: Time: 17:39 Progress Note Call placed to [facility] to initiate transfer of patient for ophthalmology, facial trauma and general trauma. I spoke with BEREKET Mckinney about the patient and he will check with the trauma staff and call me back. Progress Note #3: Time: 18:12 Progress Note BEREKET Mckinney from the transfer center called back and Dr. Matthew Rudd accepted the patient for transfer to the emergency department for trauma evaluation and ophthalmology at . Will contact them as soon as we know if patient can be flown or if she will need to come by ground. Progress Note #4: Time: 18:23 Progress Note CBC shows elevated white blood cell count of 18.9 with a normal differential. Her hemoglobin and platelets are normal. Coags are normal. Her chemistry does not have any acute significant abnormality. CT scan of the head, face, cervical spine shows degenerative changes of the cervical spine but no acute fracture or displacement. The head showed no acute intracranial hemorrhage or fracture. She has multiple facial fractures of the left face and periorbital area. There is apparent entrapment of the inferior orbit with retro-orbital fat and swelling causing protrusion of the eye. Diagnostic Imaging Diagonstic Imaging: CT Plain Films/CT/US/NM/MRI: facial bones, c-spine, head Comments NAME: MISHEL PHIPPS [facility] REC#: [id number] PT STATUS: REG ER : 1950 PHYSICIAN: KRISTEN MAZARIEGOS MD ADMIT DATE: 03/21/22/ER FS Draft Date of Exam:03/21/22 CT HEAD/FACE/CERVICAL WO EXAMINATION: CT head, face and CT cervical spine without contrast. TECHNIQUE: Multiple contiguous axial images were obtained through the face, brain and cervical spine without the use of intravenous contrast. Sagittal and coronal reformations through the cervical spine were then performed. All CT scans use one or more of the following dose optimizing techniques: automated exposure control, MA and/or KvP adjustment based on patient size and exam type or iterative reconstruction. HISTORY: Fall, left face swelling, unable to see left eye COMPARISON: 12/28/2019. FINDINGS: HEAD: The ventricles and sulci are normal. Mild hypodensities throughout the supratentorial white matter of both cerebral hemispheres. No acute intracranial hemorrhage or abnormal extra-axial fluid collections are present. Calcification of the intracranial ICAs. No hyperdense vessel. The calvarium is intact. The mastoid air cells are clear. Complete obliteration of the left maxillary sinus with orbital fat and blood products. There is pre and post septal likely hemorrhage and edema. The left orbit is protruding out of the socket. Post septal soft tissues are herniated into the left maxillary sinus. There is significant soft tissue swelling overlying the left orbital soft tissues. C-SPINE: Vertebral body height and alignment are preserved. No acute fracture, dislocation or destructive osseous process. There is multilevel facet hypertrophy without perched facets. Mild multilevel cervical spondylosis. The paraspinous soft tissues are normal. The visualized thyroid gland is normal. The visualized lung apices are normal. FACE: There are multiple mildly displaced bilateral nasal bone fractures. There is acute fracture of the posterior, medial and inferior orbital wall. Multiple mildly displaced fractures seen within the left maxillary sinus superiorly. There is herniation of orbital fat and blood into the maxillary sinuses detailed above. Acute fracture of the left lamina papyracea. There may be entrapment of the left inferior orbital muscle. Mandible and maxillae are normal. Zygomatic arches are normal. Pterygoid plates are normal. There is diffuse soft tissue swelling overlying the nose left forehead and left periorbital soft tissues. IMPRESSION: 1. Multiple displaced fractures of the left face involving the orbits, maxillary sinus and nasal bones. These result in posterior herniation of the orbital fat into the maxillary sinus with blood and possible entrapment of the inferior orbital muscle. 2. Degenerative changes of the cervical spine without acute osseous abnormality. 3. No other acute intracranial abnormality. 4. There is soft tissue swelling overlying the left nose, face and frontal scalp. This results in anterior displacement and protrusion of the left globe. Dictated on workstation # [id number] Dict: 03/21/22 1759 Trans: 03/21/228 [facility] [id number] Interpreted by: VLADIMIR DOZIER DO Electronically signed by: Reviewed: Reviewed by Me Departure Impression Primary Impression: Fracture of orbital floor, left side, initial encounter for closed fracture Additional Impressions: Fracture of medial orbital wall, left side, initial encounter for closed fracture Fall from standing Qualified Codes: W19.XXXA - Unspecified fall, initial encounter Facial contusion Qualified Codes: S00.83XA - Contusion of other part of head, initial encounter Vision loss of left eye Disposition: XFER SHT-TRM HOSP Condition: Critical Transfer Transfer Reason: Exceeds level of care (Ophthalmology/Facial Trauma) Time Spoke to Accepting Phy: 18:12 Transfer Progress Notes 1811 BEREKET Mckinney from the transfer center called back and stated that Dr. Matthew Rudd accepted the patient to come to the emergency department for ophthalmol ogy and facial trauma. Will call back and notify them as soon as we know if she is going by ground or air. We are trying to get her there is the quickest way possible and contacting helicopters open that that would be faster as it is over an hour drive to get to from here. 1825 the first helicopter contacted had declined due to weather and the second helicopter had stated that it would take them an hour just to get here, let alone transport up to . Will go by ground as she could be there in a little over an hour by running hot Transfer Facility: [facility] Method of Transfer: EMS Departure-Patient Inst. Referrals: HAILEY FLANNERY MD (PCP/Family) Primary Care Physician KRISTEN MAZARIEGOS MD March 21, 2022 17:45
[2022-03-21 17:57] LABS: PROTHROMBIN TIME PATIENT 13.1 SEC (12.2-14.7)
[2022-03-21 18:06] LABS: POTASSIUM 3.7 MMOL/L (3.6-5.0)
[2022-03-21 18:07] LABS: ALBUMIN 3.9 GM/DL (3.2-4.5); BILIRUBIN,TOTAL 0.3 MG/DL (0.1-1.0); CALCIUM 9.2 MG/DL (8.5-10.1); CREATININE SERUM 0.96 MG/DL (0.60-1.30); TOTAL PROTEIN 6.6 GM/DL (6.4-8.2)
[2022-03-21 18:12] LABS: EOSINOPHILS % (MANUAL) 1 %; LYMPHOCYTES % (MANUAL) 33 %; MONOCYTES % (MANUAL) 6 %; NEUTROPHILS % (MANUAL) 60 %
--- NOTE | 2022-03-21 18:18 | Diagnostic Imaging Report ---
EXAMINATION: CT head, face and CT cervical spine without contrast. TECHNIQUE: Multiple contiguous axial images were obtained through the face, brain and cervical spine without the use of intravenous contrast. Sagittal and coronal reformations through the cervical spine were then performed. All CT scans use one or more of the following dose optimizing techniques: automated exposure control, MA and/or KvP adjustment based on patient size and exam type or iterative reconstruction. HISTORY: Fall, left face swelling, unable to see left eye COMPARISON: 12/28/2019. FINDINGS: HEAD: The ventricles and sulci are normal. Mild hypodensities throughout the supratentorial white matter of both cerebral hemispheres. No acute intracranial hemorrhage or abnormal extra-axial fluid collections are present. Calcification of the intracranial ICAs. No hyperdense vessel. The calvarium is intact. The mastoid air cells are clear. Complete obliteration of the left maxillary sinus with orbital fat and blood products. There is pre and post septal likely hemorrhage and edema. The left orbit is protruding out of the socket. Post septal soft tissues are herniated into the left maxillary sinus. There is significant soft tissue swelling overlying the left orbital soft tissues. C-SPINE: Vertebral body height and alignment are preserved. No acute fracture, dislocation or destructive osseous process. There is multilevel facet hypertrophy without perched facets. Mild multilevel cervical spondylosis. The paraspinous soft tissues are normal. The visualized thyroid gland is normal. The visualized lung apices are normal. FACE: There are multiple mildly displaced bilateral nasal bone fractures. There is acute fracture of the posterior, medial and inferior orbital wall. Multiple mildly displaced fractures seen within the left maxillary sinus superiorly. There is herniation of orbital fat and blood into the maxillary sinuses detailed above. Acute fracture of the left lamina papyracea. There may be entrapment of the left inferior orbital muscle. Mandible and maxillae are normal. Zygomatic arches are normal. Pterygoid plates are normal. There is diffuse soft tissue swelling overlying the nose left forehead and left periorbital soft tissues. IMPRESSION: 1. Multiple displaced fractures of the left face involving the orbits, maxillary sinus and nasal bones. These result in posterior herniation of the orbital fat into the maxillary sinus with blood and possible entrapment of the inferior orbital muscle. 2. Degenerative changes of the cervical spine without acute osseous abnormality. 3. No other acute intracranial abnormality. 4. There is soft tissue swelling overlying the left nose, face and frontal scalp. This results in anterior displacement and protrusion of the left globe. Dictated by: Dictated on workstation # [id number]
[2022-03-21 18:43] VITALS: BP 187/88
== END 2022-03-21 18:43 | disposition short-term general hospital (02) ==
LOC: EDUNIT# 17:30 → ER FS 17:32
DX: S02.32XA Fracture of orbital floor, left side, initial encounter for closed fracture (principal); S02.832A Fracture of medial orbital wall, left side, initial encounter for closed fracture; S00.31XA Abrasion of nose, initial encounter; D72.829 Elevated white blood cell count, unspecified; Z23 Encounter for immunization; W01.0XXA Fall on same level from slipping, tripping and stumbling without subsequent striking against object, initial encounter; Y92.009 Unspecified place in unspecified non-institutional (private) residence as the place of occurrence of the external cause
CPT/HCPCS: 36415; 70450; 70486; 72125; 80053; 83735; 85007; 85027; 85610; 85730; 90715; 93041

== ENCOUNTER → 2022-06-23 | Outpatient (CLI) | payer MEDICARE ==
--- NOTE | 2022-06-23 10:20 | Diagnostic Imaging Report ---
CLINICAL INDICATIONS: Patient with closed fracture of the left orbit. EXAM: Axial CT scan of the orbits/sella performed without IV contrast. Sagittal and coronal reformatted images are created. Auto Exposure Controls were utilized during the CT exam to meet ALARA standards for radiation dose reduction. COMPARISON: CT scan of the head, face, and cervical spine without contrast dated 03/21/2022. FINDINGS: Interval improved alignment in healing of the comminuted displaced nasal bone fracture. There is interval decrease in the adjacent soft tissue swelling with small amount of adjacent thickening or scarring along the left side of the nasal bone region. Again seen bony defect involving the medial wall of the right orbit which has decreased in size. There is less extension of intraorbital fat medially within the left ethmoid sinus region. This defect currently measures 12 mm by roughly 3 mm in AP by transverse dimensions and is roughly 10 mm in craniocaudal dimension. There is residual increased density in this area of herniated intraorbital fat. This may represent minimal scarring and/or fluid or blood. There is slight medial concavity of the medial left external ocular muscle which is significantly improved in the interim. There is interval significant improvement of the inferior orbital floor blowout fracture which measures roughly 12 mm in transverse dimension and demonstrates grossly 4 mm of inferior depression of the fracture into the upper aspect of left maxillary sinus. This is markedly improved compared to prior study. There is residual amorphous density in the herniated fat region and this may represent scarring and/or residual small amount of fluid and/or blood. The inferior left extraocular muscle is obscured and not well delineated in the area of the fracture. Unknown if there is muscle entrapment. The inferior oblique muscle is also slightly obscured posteriorly. Previously seen significant left intraorbital blood, exophthalmos, and periorbital swelling and soft tissue air has predominantly resolved besides the areas of the orbital fracture. There is resolution of previously seen left exophthalmos. The left intraorbital optic nerve is slightly tortuous and slightly retracted inferiorly and scarring may be considered. There are postop changes to the right globe again seen which may be related to cataract surgery. IMPRESSION: 1: There are interval healing changes involving the medial and inferior left orbital blowout fractures. There is interval resolution of the previously seen herniated intraorbital fat with residual amorphous densities in the area which may represent scarring, postoperative changes, and a residual fluid of blood. There is resolution of the previously seen significant left intraorbital blood and left periorbital swelling. There is resolution of the previously seen exophthalmos. Unable to exclude entrapment of the inferior left extraocular muscle and left inferior oblique muscle given their inferior displacement, ill-defined appearance, and close proximity to the amorphous density in the prior blowout fracture. 2: There is inferior position/retraction of the intraorbital left optic nerve and scarring to be considered. 3: There is interval healing and improved alignment of the comminuted nasal bone fractures. Dictated by: Dictated on workstation # [id number]
== END ==
LOC: RAD FS 09:00
PROVIDERS: ATTEND Ophthalmology
DX: S02.32XD Fracture of orbital floor, left side, subsequent encounter for fracture with routine healing (principal); S02.2XXD Fracture of nasal bones, subsequent encounter for fracture with routine healing; X58.XXXD Exposure to other specified factors, subsequent encounter
CPT/HCPCS: 70480

== ENCOUNTER → 2023-02-07 | Outpatient (CLI) | payer MEDICARE ==
[2023-02-07 18:42] LABS: TRIGLYCERIDES 80 MG/DL (<150); VLDL CHOLESTEROL 16 MG/DL (5-40)
[2023-02-07 18:47] LABS: CHOLESTEROL 101 MG/DL (< 200)
[2023-02-07 18:48] LABS: HDL CHOLESTEROL 55 MG/DL (40-60)
== END ==
LOC: LAB FS 10:47
PROVIDERS: ATTEND Nuclear Medicine Nuclear Cardiology
DX: E78.2 Mixed hyperlipidemia (principal)
CPT/HCPCS: 36415; 80061